=== PATIENT | female | born 1935 | race Caucasian/White ===

== ENCOUNTER → 2017-07-06 | Outpatient (CLI) | payer MEDICARE, BC ==
[2017-07-06 10:00] LABS: HEMATOCRIT 36.7 % (35.0-46.0); MEAN CELL VOLUME 94.2 FL (80.0-100.0); PLATELET COUNT 210 TH/MM3 (150-450); RED CELL DISTRIBUTION WIDTH 14.4 % (11.6-17.2); REVIEW FLAG FINAL; WHITE BLOOD COUNT 4.6 TH/MM3 (4.0-11.0)
[2017-07-06 10:24] LABS: ANION GAP 7 MEQ/L (5-15); AST (GOT) 23 U/L (15-37); BICARBONATE 29.2 MEQ/L (21.0-32.0); BLOOD UREA NITROGEN 24 MG/DL (7-18); CHLORIDE 102 MEQ/L (98-107); GLOMERULAR FILTRATION RATE 56 ML/MIN (>89); GLUCOSE,FASTING 89 MG/DL (74-99); SODIUM (NA) 138 MEQ/L (136-145)
[2017-07-06 10:29] LABS: ALKALINE PHOSPHATASE 83 U/L (45-117); ALT (GPT) 16 U/L (10-53); HDL CHOLESTEROL 95.3 MG/DL (40.0-60.0); LDL CHOLESTEROL 101 MG/DL (0-99); LDL CHOLESTEROL DIRECT 113 MG/DL (0-99); TOTAL BILIRUBIN ADULT 0.5 MG/DL (0.2-1.0)
== END ==
LOC: PLAB 06:54
PROVIDERS: ATTEND Internal Medicine
DX: I10 Essential (primary) hypertension (principal); E78.5 Hyperlipidemia, unspecified
CPT/HCPCS: 36415; 80053; 80061; 83721; 85027

== ENCOUNTER 2017-12-04 15:33 | Emergency (ER) | payer MEDICARE, BC ==
[~2017-12-04] VITALS: Ht 157.5 cm; Wt 60.0 kg
[2017-12-04 15:37] VITALS: BP 172/77; PULSE 79; RESP 16; TEMP 97.2; O2SAT 95
[2017-12-04] MEDS ORDERED: VITD400 PO (15:52)
[2017-12-04] MEDS ORDERED: COQ-50CA2 PO (15:52)
[2017-12-04] MEDS ORDERED: ANAS1TAB PO (15:52)
[2017-12-04] MEDS ORDERED: GABA100C4 PO (15:52)
[2017-12-04] MEDS ORDERED: IBAN150T3 PO (15:52)
[2017-12-04] MEDS ORDERED: CENTCHW4 CHEW (15:52)
[2017-12-04] MEDS ORDERED: [UNRECOGNIZED DRUG - CODE] PO (15:52)
[2017-12-04] MEDS ORDERED: CALCTAB19 PO (15:52)
[2017-12-04] MEDS ORDERED: ZANA2CAP PO (15:52)
--- NOTE | 2017-12-04 16:14 | PD ---
HPI Chief Complaint: Fall Time Seen by Provider: 15:51 Travel History International Travel<30 days: No Contact w/Intl Traveler<30days: No Traveled to known affect area: No History of Present Illness HPI 82-year-old female that presents to the ED for evaluation of head injury after she lost her footing. Per patient she landed on her face. She states that she has some bleeding from her nose as well as pain on her chin. Denies losing consciousness. Denies taking any blood thinners. She was seen at urgent care and told to come here. Denies any back or neck pain. No arm or leg pain. No urinary or bowel movement issues. No numbness, tingling, weakness. Per patient pain is 4 out of 10 mainly on the chin. She does appear to have a superficial cut to the chin from her biting her own skin. She does have some bruising to her left lower lip and apparently has lost part of her tooth from the upper jaw. Patient has upper and lower dentures and no teeth remaining. Hasn't taken anything for this. No allergies to medication. Injury occurred today less than a few hours ago. PFSH Past Medical History Cancer: Yes Diminished Hearing: Yes Hypertension: Yes Immunizations Current: Yes Tetanus Vaccination: Unknown Influenza Vaccination: Yes ?: Not Menopausal: Yes Past Surgical History Appendectomy: Yes Gynecologic Surgery: Yes (LUMPECTOMY) Oral Surgery: Yes Tonsillectomy: Yes Other Surgery: Yes (BASAL CELL HEAD) Social History Alcohol Use: Yes (2 EVERY 3 WEEKS) Tobacco Use: No Substance Use: No Allergies-Medications (Allergen,Severity, Reaction): Coded Allergies: No Known Allergies (Unverified , 12/04/17) Reported Meds & Prescriptions Reported Meds & Active Scripts Active Amoxicillin 875 Mg Tab 875 Mg PO BID 10 Days Reported Gabapentin 100 Mg Cap 100 Mg PO BID Exforge Hct (Pyhtktemul-Qdyhtlcbe-Grppuoveqxgayvdjsug) 10-160-12.5 Mg Tab 1 Tab PO DAILY Ibandronate (Ibandronate Sodium) 150 Mg Tab 150 Mg PO Q28D Coq-10 (Coenzyme Q10 (Ubidecarenone)) 50 Mg Cap 100 Mg PO DAILY Zanaflex (Tizanidine HCl) 2 Mg Cap 2 Mg PO DAILY Calcium 600+D 200 (Calcium Carbonate-Vitamin D) 600-200 Mg-Unit Tab 1 Tab PO BID Vitamin D3 (Cholecalciferol) 400 Unit Tab 400 Units PO DAILY Anastrozole 1 Mg Tab 1 Mg PO DAILY Centrum (Multiple Vitamins W/ Minerals) 1 Chew 1 Tab CHEW DAILY Review of Systems Except as stated in HPI: all other systems reviewed are Neg Physical Exam Narrative GENERAL: SKIN: Warm and dry. HEAD: Atraumatic. Normocephalic. EYES: Pupils equal and round 4 mms reactive to light and accommodation. No scleral icterus. No injection or drainage. ENT: No nasal bleeding or discharge. Mucous membranes pink and moist. Tongue is midline. No uvula deviation. Patient has patent nostrils bilaterally. Bridge of the nose appears to be swollen and bruised. Patient does appear to have some minimal epistaxis coming from the nares. Minimal wheezing noted. No sign of posterior bleed noted. Patient does have some bruising and swelling noted on the chin itself. Patient has a very superficial cut that is about less than 1 some urinary and well approximated just below the left lower lip. Appears to be from tooth the injury. She does have some bruising and swelling of the left lower lip. She has one of her incisors missing from her denture on the left upper jaw. Otherwise no other sign of internal mouth injury. Tender to palpation on the maxillary sinuses. NECK: Trachea midline. No JVD. CARDIOVASCULAR: Regular rate and rhythm. No murmurs, S3, S4. RESPIRATORY: No accessory muscle use. Clear to auscultation. Breath sounds equal bilaterally. GASTROINTESTINAL: Abdomen soft, non-tender, nondistended. Hepatic and splenic margins not palpable. MUSCULOSKELETAL: Extremities without clubbing, cyanosis, or edema. No obvious deformities. Full range of motion of the upper and lower extremities bilaterally. No lumbar, thoracic, cervical spine tenderness to palpation. Full range of motion of the jaw. 2+ pulses bilaterally. NEUROLOGICAL: Awake and alert. No obvious cranial nerve deficits. Motor grossly within normal limits. Five out of 5 muscle strength in the arms and legs. Normal speech. PSYCHIATRIC: Appropriate mood and affect; insight and judgment normal. Data Data Last Documented VS Vital Signs Date Time Temp Pulse Resp B/P (MAP) Pulse Ox O2 Delivery O2 Flow Rate FiO2 12/04/17 15:37 97.2 79 16 172/77 (108) [address] Brain W/O Iv Contrast(Rout) (12/04/17 ) Ct Facial Bones W/O Iv Cont (12/04/17 ) Ed Discharge Order (12/04/17 16:36) [facility] Medical Decision Making Medical Screen Exam Complete: Yes Emergency Medical Condition: Yes Medical Record Reviewed: Yes Interpretation(s) Last Impressions Maxillofacial CT 12/04/17 0000 Signed Impressions: Service Date/Time: Monday, December 04, 2017 16:03 - CONCLUSION: Maxillofacial fractures are noted as above. Hemorrhage/air levels are seen in the maxillary sinuses right greater than left. Nain Codne MD Head CT 12/04/17 0000 Signed Impressions: Service Date/Time: Monday, December 04, 2017 16:03 - CONCLUSION: 1. There is no acute intracranial abnormality. 2. There is fluid filling the maxillary sinuses bilaterally. CT imaging of the facial bones is pending. Yunior Ling MD Differential Diagnosis Fracture versus internal head injury versus ICH versus head injury versus bruise versus contusion versus laceration Narrative Course 82-year-old female that presents to the ED for evaluation of head injury. Patient was properly examined and was found to have signs and symptoms consistent appears to be head injury from mechanical fall. Imaging was ordered. Imaging were positive for maxillary sinus fractures. Patient was told this. Spoke with Dr Johnson who recommends soft diet, f/u with him, no sneezing, straws or blowing nose. Recommend trial of an inflammatory is as well as ice or warm compresses. In regards to her superficial laceration to recommend gluing as he does open up if and of pressure applied. Patient agrees with this. Please refer to my note. Patient will be given a prescription for amoxicillin to cover for bacterial infection as she does have superficial cuts to the inside of the mouth as well as on supplemental. Told to follow up with PCP. See ED worsening symptoms. Ice or warm compresses. Procedures Procedure Narrative LACERATION LOCATION: chin LENGTH: 0.5 cm NUMBER OF STITCHES/RON: dermabond REPAIR: The area of the laceration was prepped with Betadine and sterilely draped. The wound was copiously irrigated and explored without evidence of foreign body, tendon injury or neurovascular injury. The wound was closed using dermabond. This was a 1 layer repair. A sterile dressing was applied. The patient was advised to keep the dressing clean and dry. Patient tolerated the procedure well. Diagnosis Primary Impression: Head injury, acute Qualified Codes: S09.90XA - Unspecified injury of head, initial encounter Additional Impressions: Laceration of face Qualified Codes: S01.81XA - Laceration without foreign body of other part of head, initial encounter Maxillary sinus fracture Qualified Codes: S02.401A - Maxillary fracture, unspecified side, initial encounter for closed fracture Referrals: Aron Johnson DDS Patient Instructions: General Instructions Additional Instructions: Motrin or Tylenol for pain. Patient symptomatically as prescribed. Ice to the areas. Follow up with Dr Johnson. See ED worsening symptoms. No sneezing, blowing nose or using straws. Soft diet until seen by Dr Johnson. Med/Other Pt SpecificInfo: Prescription(s) given Scripts Amoxicillin (Amoxicillin) 875 Mg Tab 875 MG PO BID for Infection for 10 Days, #20 TAB 0 Refills Prov: Derek Last MD 12/04/17 Disposition: 01 DISCHARGE HOME Condition: Stable Guillermo Franco Dec 04, 2017 16:14
--- NOTE | 2017-12-04 16:19 | RADRPT ---
EXAM DATE/TIME: 12/04/2017 16:03 [facility] COMPARISON: No previous studies available for comparison. INDICATIONS : Fell on cement while walking fast. Head and nose pain. RADIATION DOSE: 59.09 CTDIvol (mGy) MEDICAL HISTORY : Hypertension. Carcinoma, breast. SURGICAL HISTORY : Left lumpectomy. ENCOUNTER: Initial ACUITY: 1 day PAIN SCALE: 4/10 LOCATION: cranial TECHNIQUE: Multiple contiguous axial images were obtained of the head. Using automated exposure control and adj ustment of the mA and/or kV according to patient size, radiation dose was kept as low as reasonably a chievable to obtain optimal diagnostic quality images. DICOM format image data is available electro nically for review and comparison. FINDINGS: CEREBRUM: The ventricles are normal for age. No evidence of midline shift, mass lesion, hemorrhage or acute in farction. No extra-axial fluid collections are seen. POSTERIOR FOSSA: The cerebellum and brainstem are intact. The 4th ventricle is midline. The cerebellopontine angle i s unremarkable. EXTRACRANIAL: The visualized portion of the orbits is intact. There is opacification of the maxillary sinuses bilat erally with an air-fluid level on the left. SKULL: The calvaria is intact. No evidence of skull fracture. CONCLUSION: 1. There is no acute intracranial abnormality. 2. There is fluid filling the maxillary sinuses bilaterally. CT imaging of the facial bones is tomasa Ling MD on December 04, 2017 at 16:15 Board Certified Radiologist. This report was verified electronically.
--- NOTE | 2017-12-04 16:22 | RADRPT ---
EXAM DATE/TIME: 12/04/2017 16:03 [facility] COMPARISON: CT BRAIN W/O CONTRAST, December 04, 2017, 16:03. INDICATIONS : Fell on cement while walking fast. Head and nose pain. RADIATION DOSE: 35.55 CTDIvol (mGy) MEDICAL HISTORY : Hypertension. Carcinoma, breast. SURGICAL HISTORY : Left lumpectomy. ENCOUNTER: Initial ACUITY: 1 day PAIN SCORE: 5/10 LOCATION: facial nose TECHNIQUE: Volumetric scanning of the facial bones was performed. Using automated exposure control and adjustme nt of the mA and/or kV according to patient size, radiation dose was kept as low as reasonably achiev able to obtain optimal diagnostic quality images. DICOM format image data is available electronicall y for review and comparison. FINDINGS: There are air-fluid levels present within the bilateral maxillary sinuses right greater than left. Sp henoid, ethmoid, frontal sinuses and mastoid air cells are well aerated. The patient is edentulous. T here is a fracture through the maxilla anteriorly across midline seen best on axial image 41 extendin g through the medial wall of the left maxillary sinus, lateral wall of the left maxillary sinus, nond isplaced right medial, lateral wall maxillary sinus fractures and a mildly depressed fracture of the anterolateral right maxillary sinus. There is leftward nasal septal deviation identified. 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 CONCLUSION: Maxillofacial fractures are noted as above. Hemorrhage/air levels are seen in the maxillary sinuses r ight greater than left. Nain Conde MD on December 04, 2017 at 16:18 Board Certified Radiologist. This report was verified electronically.
[2017-12-04] MEDS ORDERED: AMOX875T PO (16:27)
== END 2017-12-04 16:46 | disposition home or self-care (01) ==
LOC: PHEFT 15:33
DX: S01.81XA Laceration without foreign body of other part of head, initial encounter (principal); S02.401A Maxillary fracture, unspecified side, initial encounter for closed fracture; S09.90XA Unspecified injury of head, initial encounter; I10 Essential (primary) hypertension; W18.30XA Fall on same level, unspecified, initial encounter
CPT/HCPCS: 12011; 70450; 70486

== ENCOUNTER → 2018-01-04 | Outpatient (CLI) | payer MEDICARE, BC ==
[~2018-01-04] MED LIST: AMOX875T PO; ANAS1TAB PO; CALCTAB19 PO; CENTCHW4 CHEW; COQ-50CA2 PO; GABA100C4 PO; IBAN150T3 PO; VITD400 PO; ZANA2CAP PO; [UNRECOGNIZED DRUG - CODE] PO
[2018-01-04 13:03] LABS: HEMATOCRIT 36.7 % (35.0-46.0); HEMOGLOBIN 12.3 GM/DL (11.6-15.3); MEAN CELL VOLUME 94.9 FL (80.0-100.0); MEAN CORPUSCULAR HEMOGLOBIN 31.7 PG (27.0-34.0); MEAN CORPUSCULAR HGB CONC 33.4 % (32.0-36.0); MEAN PLATELET VOLUME 9.5 FL (7.0-11.0); PLATELET COUNT 265 TH/MM3 (150-450); RED BLOOD COUNT 3.87 MIL/MM3 (4.00-5.30); RED CELL DISTRIBUTION WIDTH 13.9 % (11.6-17.2); WHITE BLOOD COUNT 4.9 TH/MM3 (4.0-11.0)
[2018-01-04 13:09] LABS: ALBUMIN 3.8 GM/DL (3.4-5.0); AST (GOT) 23 U/L (15-37); BICARBONATE 31.6 MEQ/L (21.0-32.0); BLOOD UREA NITROGEN 20 MG/DL (7-18); CALCIUM 9.9 MG/DL (8.5-10.1); CHLORIDE 104 MEQ/L (98-107); CREATININE 0.92 MG/DL (0.50-1.00); GLOMERULAR FILTRATION RATE 58 ML/MIN (>89); GLUCOSE,FASTING 97 MG/DL (74-99); SODIUM (NA) 141 MEQ/L (136-145)
[2018-01-04 13:10] LABS: CHOLESTEROL 206 MG/DL (120-200)
[2018-01-04 13:14] LABS: ALKALINE PHOSPHATASE 81 U/L (45-117); ALT (GPT) 17 U/L (10-53); CHOLESTEROL/ HDL RATIO 2.45 RATIO; HDL CHOLESTEROL 83.9 MG/DL (40.0-60.0); LDL CHOLESTEROL 109 MG/DL (0-99); LDL CHOLESTEROL DIRECT 117 MG/DL (0-99); TOTAL BILIRUBIN ADULT 0.4 MG/DL (0.2-1.0); TOTAL PROTEIN 8.2 GM/DL (6.4-8.2); TRIGLYCERIDES 65 MG/DL (42-150)
== END ==
LOC: PLAB 06:51
PROVIDERS: ATTEND Internal Medicine
DX: I10 Essential (primary) hypertension (principal); E78.5 Hyperlipidemia, unspecified
CPT/HCPCS: 36415; 80053; 80061; 83721; 85027